=== PATIENT | female | born 1985 | race Caucasian/White ===

== ENCOUNTER 2016-12-20 14:40 | Emergency (ER) | payer OTHER ==
[2016-12-20 15:46] LABS: RED BLOOD COUNT 4.31 M/UL (4.00-5.10); WHITE BLOOD COUNT 9.4 K/UL (4.5-11.0)
[2016-12-20 16:03] LABS: BUN/CREATININE RATIO 14 (0-10)
== END 2016-12-20 20:26 | disposition home or self-care (01) ==
LOC: ER1 14:40
PROVIDERS: Emergency Medicine
DX: A59.09 Other urogenital trichomoniasis (principal); R10.2 Pelvic and perineal pain; F17.210 Nicotine dependence, cigarettes, uncomplicated; Z79.899 Other long term (current) drug therapy
CPT/HCPCS: 36415; 76830; 80053; 81001; 83690; 84703; 85025; 87210; 96365; 96375; 96376; 99284; J0696; J2405; J7050